=== PATIENT | male | born 1960 | race Caucasian/White ===

== ENCOUNTER → 2020-04-26 | Outpatient (CLI) | payer OTHER ==
[~2020-04-26] MED LIST: APAP325T4 PO; CLIN300C5 PO; HYDR-3713 PO; MAGICMW SSP; anxiety med; cholesterol med; inhaler
[2020-04-26 17:01] LABS: APPEARANCE, URINE CLEAR (CLEAR); BACTERIA, URINE AUTO NEGATIVE (NEGATIVE); BILIRUBIN, URINE AUTO NEGATIVE (NEGATIVE); BLOOD, URINE BLOOD NEGATIVE (NEGATIVE); COLOR, URINE YELLOW (YELLOW); GLUCOSE, URINE (UA) AUTO NEGATIVE (NEGATIVE); KETONE, URINE AUTO NEGATIVE (NEGATIVE); LEUKOCYTE ESTERASE, URINE AUTO NEGATIVE (NEGATIVE); NITRITE, URINE AUTO NEGATIVE (NEGATIVE); PROTEIN, URINE AUTO NEGATIVE (NEGATIVE); RBC, URINE AUTO 1 /HPF (0-3); SQUAMOUS EPITHELIAL CELL UR AU 0 /HPF (0-6); UROBILINOGEN, URINE AUTO 0.2 mg/dL (0.0-2.0); WBC, URINE AUTO 0 /HPF (0-3)
--- NOTE | 2020-04-27 15:30 | REP ---
REASON: Left-sided chest pain. There are no priors for comparison. Seen only on the lateral view, there is a curvilinear density in the inferior anterior retrosternal clear space. This measures approximately 2.5 x 1 cm. The frontal view shows clear lungs and sharp pleural angles without cardiomegaly or an osseous abnormality. IMPRESSION: Abnormal opacities seen only on the lateral view as described above and for which contrast enhanced CT examination of the chest is recommended since there are no priors for comparison. Electronically Signed by Elliott Huang DO 04/29/2020 07:44 A
== END ==
LOC: M RAD 12:50
PROVIDERS: ATTEND Physician Assistant Medical
DX: R07.89 Other chest pain (principal); R06.02 Shortness of breath; R91.8 Other nonspecific abnormal finding of lung field

== ENCOUNTER 2020-04-28 21:52 | Emergency (ER) | payer OTHER ==
[~2020-04-28] VITALS: Ht 182.9 cm; Wt 159.1 kg
[2020-04-28] MEDS ORDERED: APAP325T4 PO (22:04)
[2020-04-28] MEDS ORDERED: inhaler (22:26)
[2020-04-28] MEDS ORDERED: cholesterol med (22:26)
[2020-04-28] MEDS ORDERED: anxiety med (22:26)
[2020-04-28] MEDS ORDERED: MAGIC MOUTHWASH SUSPENSION BTL SS STA (23:35)
[2020-04-28] MEDS ORDERED: HYDR-3713 PO (23:41)
[2020-04-28] MEDS ORDERED: CLIN300C5 PO (23:41)
[2020-04-28] MEDS ORDERED: MAGICMW SSP (23:41)
[2020-04-28] MEDS ORDERED: CLINDAMYCIN 150MG CAPSULE PO ONE (23:45)
[2020-04-28] MEDS ORDERED: AUGMENTIN 875 MG TAB PO ONE (23:45)
[2020-04-28] MEDS ORDERED: NORCO 5/325MG TABLET (BULK FOR ED) PO ONE (23:45)
[2020-04-29 00:07] VITALS: BP 136/88
== END 2020-04-29 00:08 | disposition home or self-care (01) ==
LOC: M ED 21:52
DX: K04.7 Periapical abscess without sinus (principal)

== ENCOUNTER → 2020-05-03 | Outpatient (REF) | payer OTHER, MEDICAID ==
[2020-05-03 17:25] LABS: BASO % 0.4 % (0.0-1.0); EOS # 0.5 10^3/uL (0.0-0.5); EOS % 5.7 % (0.0-3.0); HEMATOCRIT 40.4 % (42.0-52.0); HEMOGLOBIN 12.7 g/dl (13.5-17.5); LYMPH # 2.3 10^3/uL (1.5-5.0); LYMPH % 24.9 % (24.0-44.0); MEAN CORPUSCULAR HEMOGLOBIN 28.9 pg (27.0-33.0); MEAN CORPUSCULAR HGB CONC 31.4 g/dl (32.0-36.5); MEAN CORPUSCULAR VOLUME 91.8 fl (80.0-96.0); MONO % 10.7 % (0.0-5.0); NEUTROPHILS # 5.3 10^3/uL (1.5-8.5); NEUTROPHILS % 58.1 % (36.0-66.0); PLATELET COUNT, AUTOMATED 221 10^3/uL (150-450); WHITE BLOOD COUNT 9.1 10^3/uL (4.0-10.0)
[2020-05-03 17:38] LABS: ALBUMIN 3.2 GM/DL (3.2-5.2); ALT/SGPT 18 U/L (12-78); BILIRUBIN,TOTAL 0.2 MG/DL (0.2-1.0); BLOOD UREA NITROGEN 26 MG/DL (7-18); CALCIUM LEVEL 8.9 MG/DL (8.5-10.1); CARBON DIOXIDE LEVEL 27 MEQ/L (21-32); CHLORIDE LEVEL 112 MEQ/L (98-107); CHOLESTEROL LEVEL 137 MG/DL (<200); CHOLESTEROL RISK RATIO 3.605 (<5); CREATININE FOR GFR 1.01 MG/DL (0.70-1.30); GLOMERULAR FILTRATION RATE > 60.0 (>56); GLUCOSE, FASTING 90 MG/DL (70-100); HDL CHOLESTEROL 38 MG/DL (>40); LDL CHOLESTEROL 69 MG/DL (<100); NON-HDL-C 99 MG/DL; POTASSIUM SERUM 4.5 MEQ/L (3.5-5.1); SODIUM LEVEL 143 MEQ/L (136-145); TOTAL PROTEIN 6.5 GM/DL (6.4-8.2); TRIGLYCERIDES LEVEL 150 MG/DL (<150)
[2020-05-03 17:39] LABS: HEMOGLOBIN A1c 6.4 %; TOTAL 25(OH) VITAMIN D 30.8 NG/ML (30.0-100.0)
[2020-05-03 22:42] LABS: THYROXINE (T4) 6.7 UG/DL (4.5-12.0)
[2020-05-03 22:53] LABS: THYROID PEROXIDASE ANTIBODY > 1300.0 U/ML (<60.0); TOTAL T3 95.6 NG/DL (60.0-181.0)
== END ==
LOC: M LAB REF 16:48
PROVIDERS: ATTEND Family Medicine
DX: Z98.890 Other specified postprocedural states (principal)